=== PATIENT | female | born 1985 | race Caucasian/White ===

== ENCOUNTER 2023-12-23 17:42 | Emergency (ER) | payer BC, SELFPAY ==
--- NOTE | ~2023-12-23 | XR_ITS ---
EXAMINATION: XR chest 2V Exam Date/Time: 12/23/2023 18:00 CDT HISTORY: CHEST TIGHTNESS tooday/COUGH x 2 weeks Comparison: None. RESULT: Lines, tubes, and devices: None. Lungs and pleura: Mild streaky perihilar opacities, with mild cuffing. Cardiomediastinal silhouette: Stable. Other: No acute osseous or upper abdominal finding. IMPRESSION: Pulmonary opacities may represent respiratory bronchiolitis or reactive airways disease depending on the clinical context. Reviewed, dictated and finalized at location K.
--- NOTE | 2023-12-23 18:00 | ECG_ITS ---
Test Date: 2023-12-23 17:55:33 Measurements Intervals [place] Rate: 86 P: 39 WA: 149 QRS: 65 QRSD: 99 T: 42 QT: 333 QTc: 400 Interpretive Statements SINUS RHYTHM NONSPECIFIC T-WAVE ABNORMALITY No previous ECG available for comparison Electronically Signed On 12-24-2023 14:35:15 CDT by Broderick Carias M.D.
[2023-12-23 18:05] VITALS: BP 144/70; PULSE 98; RESP 20; TEMP 37; O2SAT 96
--- NOTE | 2023-12-23 18:18 | ED.GENADULT ---
HPI - General Adult General Chief complaint: Upper Respiratory Infection Stated complaint: Chills/Vomiting/Fever/Chest Pain Source: patient Mode of arrival: ambulatory Limitations: no limitations History of Present Illness HPI narrative: Patient presents for evaluation of respiratory symptoms. She indicates 2 weeks ago she had sick symptoms including fever, chills, nausea, vomiting and diarrhea. Those symptoms improved. Last week she developed a cough which is productive of yellow/green sputum, SOB, wheezing and pleuritic chest pain. No recent sick contacts to her knowledge. She tried taking ibuprofen for her symptoms. She has not taken any cough or cold medication. She does use an electronic cigarette. She stopped using traditional cigarettes in July of this year. No underlying hx of asthma. Related Data Allergies Allergy/AdvReac Type Severity Reaction Status Date / Time adhesive tape AdvReac Rash Verified 12/23/23 18:01 Review of Systems Review of Systems: CONSTITUTIONAL: Denies fever, chills, or sweats. EYES: Denies visual changes, redness, or discharge. ENT: Denies rhinorrhea, congestion, sore throat, or otalgia. CARDIOVASCULAR: Denies chest pain other than pleuritic pain. Denies palpitations or edema. RESPIRATORY: Reports cough, SOB, wheezing and pleuritic chest pain GASTROINTESTINAL: Denies abdominal pain, nausea, vomiting, or diarrhea. GENITOURINARY: Denies dysuria or hematuria. SKIN: Denies rash or itching. MUSCULOSKELETAL: Denies back pain, joint pain, or myalgia. NEUROLOGIC: Denies headache, numbness, dizziness, or weakness. PSYCHIATRIC: Denies anxiety or depression. [facility] Past Medical History Medical History Anxiety Bipolar disorder Surgical History Surgical History H/O oophorectomy History of hysterectomy Family History Family History Mother Family history non-contributory Social History Social History Smoking status: Current every day smoker Tobacco type: e-cigarettes/vaping Substance use: never Living arrangements: with family Gender identity (if verbalized by the patient): Female Sexual Orientation (if Verbalized by the Patient): Straight or Heterosexual Spiritual care concerns: No Exam Narrative: GENERAL: Well-appearing, well-nourished, and in no acute distress. HEAD: Normocephalic, atraumatic. EYES: PERRLA and EOMI. ENT: Nares clear, no rhinorrhea or epistaxis. Mucous membranes moist. Oropharynx without tonsillar hypertrophy exudate or other lesions. Bilateral TMs pearly paul nonbulging NECK: Supple. No adenopathy or masses. No carotid bruits or JVD CHEST: Cough present on exam. Clear to auscultation. No respiratory distress. No wheezes rales or rhonchi HEART: Regular rate and rhythm. No murmur heard. Normal peripheral pulses. ABDOMEN: Soft, nontender, nondistended, normal active bowel sounds. EXTREMITIES: Normal range of motion. No edema. SKIN: Warm, dry, no rash. NEURO: No focal deficits. Alert and oriented x3. PSYCH: Normal mood and affect. Course Course Emergency Course: This is a 38-year-old female who presented for evaluation of respiratory symptoms. Chest x-ray showed pulmonary opacities. Bacterial process cannot be ruled out and I suspect that she does have a community-acquired pneumonia based upon her clinical picture. She was given Solu-Medrol and nebulizer treatment with improvement in her symptoms or after. Will discharge with Augmentin, azithromycin, prednisone, dull some, albuterol. Increase hydration. Do not use electronic cigarette. Follow up with PCP. Go to the ER for worsening symptoms. Pt in agreement with plan of care. Level of Care: Express Care Visit Vital Signs Vital signs: Vital Si
[2023-12-23] MEDS: IPRATROPIUM 0.5 MG/ALBUTEROL SULFATE 2.5 MG AMPUL.NEB 3 ML INHALATION (18:25)
[2023-12-23] MEDS: methylPREDNISolone SOD SUCC 125 MG VIAL IM (18:25)
== END 2023-12-23 18:45 | disposition home or self-care (01) ==
PROVIDERS: Emergency Provider Nurse Practitioner
DX: J18.9 Pneumonia, unspecified organism (principal); F17.290 Nicotine dependence, other tobacco product, uncomplicated
CPT/HCPCS: 71046; 93005; 96372; 99213; G0463; J2919